=== PATIENT | male | born 2000 | race African-American/Black ===

== ENCOUNTER 2024-05-01 23:17 | Emergency (ER) | payer SELFPAY ==
[~2024-05-01] VITALS: Ht 177.8 cm; Wt 72.6 kg
[~2024-05-01 23:17] MED LIST: VALACYCLOVIR1000 MG PO
[2024-05-01 23:18] VITALS: PULSE 95; RESP 18; TEMP 98.8; O2SAT 97
[2024-05-02] MEDS ORDERED: AMOXICILLIN500 MG PO (00:05)
[2024-05-02] MEDS ORDERED: AMOXICILLIN/CLAVULANATE K 875 MG TAB ONE (00:09)
[2024-05-02 00:15] VITALS: BP 127/75; PULSE 95; RESP 18; TEMP 98.8
[2024-05-02] MEDS: AMOXICILLIN/CLAVULANATE K 875 MG TAB PO STA (02:51)
== END 2024-05-02 00:15 | disposition home or self-care (01) ==
LOC: FSED 23:22
DX: R09.89 Other specified symptoms and signs involving the circulatory and respiratory systems (principal); J02.9 Acute pharyngitis, unspecified; F41.9 Anxiety disorder, unspecified; Z11.52 Encounter for screening for COVID-19; F17.210 Nicotine dependence, cigarettes, uncomplicated
CPT/HCPCS: 0223U; 83518; 99283